=== PATIENT | female | born 1975 | race Caucasian/White ===

== ENCOUNTER 2021-02-10 08:09 | Outpatient (REF) | payer OTHER, SELFPAY ==
[2021-02-11 12:59] LABS: CT PCR NOT DETECTED (Not Detect.); NG PCR NOT DETECTED (Not Detect.)
[2021-02-11 13:03] LABS: BV Int Neg Control Negative (Negative); BV Int Pos Control Positive (Positive)
[2021-02-14 22:27] LABS: HPV mRNA E6/E7 rflx Not Detected (Not Detected)
== END 2021-02-10 08:10 | disposition home or self-care (01) ==
LOC: HO.LAB 08:09
PROVIDERS: Visit Provider Advanced Practice Midwife
DX: Z01.411 Encounter for gynecological examination (general) (routine) with abnormal findings (principal); Z11.51 Encounter for screening for human papillomavirus (HPV); Z11.3 Encounter for screening for infections with a predominantly sexual mode of transmission; N93.9 Abnormal uterine and vaginal bleeding, unspecified; R23.2 Flushing; N88.9 Noninflammatory disorder of cervix uteri, unspecified; Z20.2 Contact with and (suspected) exposure to infections with a predominantly sexual mode of transmission
CPT/HCPCS: 81003; 81025; 87480; 87491; 87510; 87591; 87624; 87660; 88142

== ENCOUNTER 2021-03-02 10:41 | Outpatient (REF) | payer OTHER, SELFPAY ==
--- NOTE | ~2021-03-02 | US_ITS ---
EXAMINATION: PELVIC ULTRASOUND CLINICAL INFORMATION: Abnormal bleeding COMPARISON: Previous exam November 2011 TECHNIQUE: Transabdominal and transvaginal pelvic ultrasound was performed. Transvaginal exam was performed for better visualization of the uterus and ovaries. FINDINGS: The uterus is retroverted and measures 6.1 x 2 x 3 cm in dimension. There may be small calcifications in the left side of uterus. No focal uterine lesion is seen. Endometrial thickness is upper normal measuring 1.6 cm. The ovaries are normal-appearing. The right ovary measures 2.1 x 1.9 x 1.4 cm. The left ovary measures 2.5 x 1.4 x 2 cm. There is no fluid in the pelvis. US/US pelvic and transvaginal IMPRESSION: Upper normal thickness endometrium measuring 1.6 cm. Normal-appearing ovaries.
== END 2021-03-02 10:42 | disposition home or self-care (01) ==
LOC: HO.US 10:41
PROVIDERS: PCP Nurse Practitioner Family; Visit Provider Advanced Practice Midwife
DX: N93.9 Abnormal uterine and vaginal bleeding, unspecified (principal)
CPT/HCPCS: 76830; 76856

== ENCOUNTER 2021-03-16 08:35 | Outpatient (REF) | payer OTHER, SELFPAY ==
[2021-03-17 08:07] LABS: Follicle Stimulating Hormone 25.5 mIU/mL
[2021-03-18 18:06] LABS: HPV mRNA E6/E7 rflx Not Detected (Not Detected)
== END 2021-03-16 08:36 | disposition home or self-care (01) ==
LOC: HO.LAB 08:35
PROVIDERS: PCP Nurse Practitioner Family; Visit Provider Advanced Practice Midwife
DX: N93.9 Abnormal uterine and vaginal bleeding, unspecified (principal); R23.2 Flushing; N88.9 Noninflammatory disorder of cervix uteri, unspecified; Z11.51 Encounter for screening for human papillomavirus (HPV)
CPT/HCPCS: 36415; 58100; 83001; 87624; 88142; 88305

== ENCOUNTER → 2021-03-30 11:39 | Outpatient (BNVA) | payer OTHER, SELFPAY | PROVIDERS: PCP Nurse Practitioner Family; Visit Provider Advanced Practice Midwife ==